=== PATIENT | female | born 1995 | race Caucasian/White ===

== ENCOUNTER → 2020-03-25 08:10 | Outpatient (BNVA) | payer OTHER, SELFPAY | PROVIDERS: Visit Provider Dietitian, Registered | DX: Z76.89 Persons encountering health services in other specified circumstances (principal) ==

== ENCOUNTER → 2022-12-16 09:14 | Outpatient (BNVA) | payer OTHER, SELFPAY | PROVIDERS: PCP Nurse Practitioner Family; Visit Provider Physician Assistant Surgical ==

== ENCOUNTER 2023-01-11 10:46 | Outpatient (AMB) | payer OTHER, SELFPAY ==
--- NOTE | 2023-01-11 10:56 | MHC.OFFVISWM ---
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 Her goal is to be healthy. She was in our SWL program before 2019 for a shor time, was not ready at that time. She reports first being concerned about her weight sicne childhood. . She has tried multiple methods of weight loss including diets without permanent results. 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 W- F 8-3pm and Thus/ Fri - 6am -4pm. 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 Coffee 1 cup with cream and sugar from DD Lunch: 12 pm - rice and beans with chicken or pork - from restaurant . water or juan daniel juice Dinner: 7pm -pasta with ground beef and spaghetti sauce. vegetables once per week. water After dinner: nothing Other snacks: 3pm bag of chips. water Liquids: Gingerale 3d/ week, juice few days per week. Alcohol intake: 2 d/mo- 2 glasses wine, tobacco: none, marijuana: 2 d times per month Exercise: none, wants to get membership Last mammogram: never Last pap smear: up to date control method: none presently, has PCP appt scheduled CATRACHITO:0 ESS:5 GERD:0: QOL:62 PFSH Surgical History History of delivery Family History Maternal Grandmother Hypertension Mother No problems noted. Father No problems noted. Daughter No problems noted. Daughter No problems noted. Son No problems noted. Social History Alcohol intake: current Alcohol intake frequency: a few times a month Patient Tobacco Use Status: Never used Tobacco Physical Exam Vital Signs: Last Vital Signs Temp 97.5 F 01/11/23 11:07 Pulse 88 01/11/23 11:07 BP 139/93 H 01/11/23 11:07 Pulse Ox 99 01/11/23 11:07 Oxygen Delivery Method Room Air 01/11/23 11:07 BMI result Body Mass Index 55.7 Const General: cooperative, no acute distress and well developed Nutritional Appearance: obese Orientation/consciousness: patient oriented x3 HEENT Head: Yes normal to inspection Neck Neck: Yes normal visual inspection Thyroid: Thyroid normal Resp Effort & Inspection: normal respiratory effort Auscultation: clear to auscultation bilaterally Cardio Rate: regular rate Rhythm: regular rhythm Heart sounds: S1 normal heart sound present, S2 normal heart sound present and no murmurs GI Inspection: No distended and Yes obesity Palpation (GI): Soft to palpation, nontender and no guarding Skin General skin exam: no rashes or lesions noted and other (warm and dry) Wounds: no wounds Hair: normal Neuro General: patient oriented x3 Extrem General: Yes no pedal edema and Yes no calf tenderness Psych Attitude: cooperative Thought process: Normal thought process present Thought content: Normal thought content present Insight: Good insight present (Psych) Judgement: Good judgement present (Psych) Assessment & Plan Assessment & Plan (1) Morbid obesity: Code(s): E66.01 - Morbid (severe) obesity due to excess calories Plan: This is a 27 yo woman with morbid obesity who will start SWL program to prepare for bariatric surgery. Blood work, h pylori , CXR, ECG, Abd ULS and UGI have been ordered. She is being scheduled for RD and BH initial consultations. She will start SWL classes and watch at 3 classes before her next appt with Gregoria. 1. Adequate sleep of 7-8 hours per night discussed 2. Healthy meal plan - stop skipping meals and stop all sweetened drinks and stop restaurant food for now All meals/MR's need to take 20 minutes to complete wants to switch to herbal tea with stevia 9am - 30 gram shake 11 pm - bar or yogurt 2 pm- shake 6 pm- dinner of 6 oz lean protein, 8 oz vegetable, 1 serving fruit Exercise - 4 -5 days per week LS 2 mile videos for now. Start with 3 days per week this week. The importance of avoiding and breast feeding for at least 18 months after bariatric surgery was discussed in the information session and was reinforced today. Needs contraceptive method. Pt will purchase body composition analyzer (recommended list given to patient) and weight herself weekly. Next appt with me in 3 weeks. Text me with any questions and weekly weights. Patient is morbidly obese and is not considered stable at this time.?I spent a total of 60 minutes reviewing/updating records, examining the patient and counseling the patient on weight management as detailed above. (2) Pre-op evaluation: Code(s): Z01.818 - Encounter for other preprocedural examination Coding Level of Care Code New Pt Level 5 (77199) Diagnoses Morbid obesity E66.01 Pre-op evaluation Z01.818
[2023-01-11 11:07] VITALS: BP 139/93; PULSE 88; TEMP 36.4; O2SAT 99; BMI 55.7
== END 2023-01-11 11:55 | disposition home or self-care (01) ==
PROVIDERS: PCP Nurse Practitioner Family; Visit Provider Physician Assistant
DX: E66.01 Morbid (severe) obesity due to excess calories (principal); Z68.43 Body mass index [BMI] 50.0-59.9, adult
CPT/HCPCS: 99205

== ENCOUNTER → 2023-01-11 10:46 | Outpatient (BNVA) | payer OTHER, SELFPAY | PROVIDERS: PCP Nurse Practitioner Family; Visit Provider Physician Assistant | DX: E66.01 Morbid (severe) obesity due to excess calories (principal); Z68.43 Body mass index [BMI] 50.0-59.9, adult | CPT/HCPCS: 99202; 99211 ==

== ENCOUNTER 2023-01-11 12:30 | Outpatient (REF) | payer OTHER, SELFPAY ==
[2023-01-14 14:35] LABS: H Pylori Breath Test Negative (Negative)
== END 2023-01-11 12:31 | disposition home or self-care (01) ==
LOC: HO.LNP 12:30
PROVIDERS: Visit Provider Physician Assistant
DX: Z01.818 Encounter for other preprocedural examination (principal); E66.01 Morbid (severe) obesity due to excess calories; Z71.3 Dietary counseling and surveillance; Z11.0 Encounter for screening for intestinal infectious diseases; Z68.43 Body mass index [BMI] 50.0-59.9, adult
CPT/HCPCS: 83013

== ENCOUNTER 2023-02-08 09:49 | Outpatient (AMB) | payer OTHER, SELFPAY ==
--- NOTE | 2023-02-08 09:51 | MHC.OFFVISWM ---
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 Starting weight was 366.2 lbs on . No weight loss yet. Just started plans and has made many changes so far. Now sleeping 7 hours per night. 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 Meal plan: started last week. 8am - [employer] - over 15 - 20 minutes 11 am - [employer] shake 3pm - bar - Pure protein 7pm - broccoli/carrots every day 12 forks, 6oz (12 forks) chicken breast and salmon Exercise - tried videos twice. Now has gym membership treadmill - 1-2 speed, incline - 0, 30 minutes, calories H pylori - done --negative. Nothing else done yet. [facility] Surgical History History of delivery Family History Maternal Grandmother Hypertension Mother No problems noted. Father No problems noted. Daughter No problems noted. Daughter No problems noted. Son No problems noted. Social History Alcohol intake: current Alcohol intake frequency: a few times a month Patient Tobacco Use Status: Never used Tobacco Physical Exam Vital Signs: Last Vital Signs Temp 97.2 F 02/08/23 09:55 Pulse 77 02/08/23 09:55 Resp 16 02/08/23 09:55 BP 136/66 02/08/23 09:55 Pulse Ox 98 02/08/23 09:55 Oxygen Delivery Method Room Air 02/08/23 09:55 BMI result Body Mass Index 56.2 Assessment & Plan Assessment & Plan (1) Morbid obesity: Code(s): E66.01 - Morbid (severe) obesity due to excess calories Plan: Will schedule all pre op appts today. She missed BH and RD was cancelled because she hadn't starte meal plan yet. No changes to meal plan - she is happy and not hungry. Exercise - gym - 3d/ week treadmill - speed 2.5, incline 0-5 (3 minutes ) for 350 calories. 2 d at home LS 2 mile videos. Next appt with me in 3 weeks. Patient is morbidly obese and is not considered stable at this time. I spent 30 minutes in total with patient reviewing/updating records, examining the patient and counseling the patient on weight management as detailed above. Orders: Orders Lipid Panel Today E66.01 - Morbid (severe) obesity due to excess calories, Z01.818 - Encounter for other preprocedural examination Vitamin B12 and Folate Today E66.01 - Morbid (severe) obesity due to excess calories, Z01.818 - Encounter for other preprocedural examination Vitamin A Today E66.01 - Morbid (severe) obesity due to excess calories, Z01.818 - Encounter for other preprocedural examination C Reactive Protein Today E66.01 - Morbid (severe) obesity due to excess calories, Z01.818 - Encounter for other preprocedural examination TSH reflex Free T4 Today E66.01 - Morbid (severe) obesity due to excess calories, Z01.818 - Encounter for other preprocedural examination Vitamin D 25-OH Total Today E66.01 - Morbid (severe) obesity due to excess calories, Z01.818 - Encounter for other preprocedural examination Hemoglobin A1c Today E66.01 - Morbid (severe) obesity due to excess calories, Z01.818 - Encounter for other preprocedural examination US abdomen comp w elastography Today E66.01 - Morbid (severe) obesity due to excess calories, Z01.818 - Encounter for other preprocedural examination FL upper GI w air Today E66.01 - Morbid (severe) obesity due to excess calories, Z01.818 - Encounter for other preprocedural examination Insulin Today E66.01 - Morbid (severe) obesity due to excess calories, Z01.818 - Encounter for other preprocedural examination IRON PROFILE Today E66.01 - Morbid (severe) obesity due to excess calories, Z01.818 - Encounter for other preprocedural examination Complete Blood Count Auto Diff Today E66.01 - Morbid (severe) obesity due to excess calories, Z01.818 - Encounter for other preprocedural examination Zinc Today E66.01 - Morbid (severe) obesity due to excess calories, Z01.818 - Encounter for other preprocedural examination Comprehensive Met. Panel Today E66.01 - Morbid (severe) obesity due to excess calories, Z01.818 - Encounter for other preprocedural examination Vitamin B1 Today E66.01 - Morbid (severe) obesity due to excess calories, Z01.818 - Encounter for other preprocedural examination Ferritin Today E66.01 - Morbid (severe) obesity due to excess calories, Z01.818 - Encounter for other preprocedural examination PTHI Today E66.01 - Morbid (severe) obesity due to excess calories, Z01.818 - Encounter for other preprocedural examination H Pylori Breath Test Today E66.01 - Morbid (severe) obesity due to excess calories, Z01.818 - Encounter for other preprocedural examination XR chest 2V Today E66.01 - Morbid (severe) obesity due to excess calories, Z01.818 - Encounter for other preprocedural examination ECG 12 lead EKG Today E66.01 - Morbid (severe) obesity due to excess calories, Z01.818 - Encounter for other preprocedural examination Referrals Behavioral Health Referral E66.01 - Morbid (severe) obesity due to excess calories, Z01.818 - Encounter for other preprocedural examination Nutrition/Dietitian Referral E66.01 - Morbid (severe) obesity due to excess calories, Z01.818 - Encounter for other preprocedural examination Coding Level of Care Code Est Pt Level 4 (30721) Diagnoses Morbid obesity E66.
[2023-02-08 09:55] VITALS: BP 136/66; PULSE 77; RESP 16; TEMP 36.2; O2SAT 98; BMI 56.2
== END 2023-02-08 10:33 | disposition home or self-care (01) ==
PROVIDERS: PCP Nurse Practitioner Family; Visit Provider Physician Assistant
DX: E66.01 Morbid (severe) obesity due to excess calories (principal); Z68.43 Body mass index [BMI] 50.0-59.9, adult
CPT/HCPCS: 99214

== ENCOUNTER 2023-02-08 09:49 | Outpatient (REF) | payer OTHER, SELFPAY ==
[2023-02-08 10:55] LABS: MANUAL DIFF FLAG NO
[2023-02-08 11:16] LABS: Basophils Percent Auto 0.6 % (0-2); Eosinophils Absolute Auto 0.1 X10*3/uL (0.0-0.4); Eosinophils Percent Auto 1.9 % (0-4); Hematocrit 38.4 % (37.0-47.0); Hemoglobin 12.6 g/dl (12.0-16.0); Imm Gran Abs Auto 0.04 X10*3/uL (0.00-0.03); Imm Gran Pct Auto 0.6 % (0.0-0.4); Lymphocytes Absolute Auto 2.8 X10*3/uL (1.2-4.9); Lymphocytes Percent Auto 41.8 % (20-40); Mean Corpuscular HGB Conc 32.8 g/dl (31.0-35.0); Mean Corpuscular Hemoglobin 27.8 pg (27.0-33.0); Mean Corpuscular Volume 84.6 fL (80.0-98.0); Mean Platelet Volume 8.8 fL (9.4-12.3); Monocytes Absolute Auto 0.5 X10*3/uL (0.1-1.2); Monocytes Percent Auto 7.6 % (2-11); Neutrophils Absolute Auto 3.2 x10*3/uL (2.0-8.3); Neutrophils Percent Auto 47.5 % (45-73); Platelet Count 352 X10*3/uL (160-400); Red Blood Count 4.54 X10*6/uL (4.20-5.50); Red Cell Distribution Width 13.4 % (11.0-16.0); White Blood Count 6.7 X10*3/uL (4.8-10.8)
[2023-02-08 11:18] LABS: Estimated Average Glucose 97 mg/dL
[2023-02-08 12:25] LABS: Folate 10.1 ng/mL (> or = 4.0); Vitamin B12 219 pg/mL (200-900)
[2023-02-08 12:40] LABS: Alanine Aminotransferase 10 U/L (0-31); Albumin Level 4.1 g/dL (3.5-5.0); Alkaline Phosphatase 72 U/L (39-117); Anion Gap 9 (12-20); Aspartate Amino Transferase 24 U/L (5-31); Bilirubin Total 0.3 mg/dL (0.0-1.0); Blood Urea Nitrogen 11 mg/dL (9-16); C Reactive Protein 1.08 mg/dL (< or = 0.50); Calcium 9.1 mg/dL (8.4-10.2); Carbon Dioxide 27 mmol/L (22-29); Chloride 108 mmol/L (96-108); Cholesterol 218 mg/dL (<200); Estimated Glomerular Filt Rate > 60; Ferritin 16 ng/mL (10-122); Glucose Random 98 mg/dL (60-115); HDL Cholesterol 54 mg/dL (>40); Insulin 15 uU/mL (2-29); Iron 37 mcg/dL (30-160); LDL Cholesterol Calculated 153 mg/dL (<100); Percent Iron Saturation 12 % (15-50); Potassium 4.2 mmol/L (3.3-5.1); Sodium 140 mmol/L (135-145); TSH reflex Free T4 0.46 uIU/mL (0.32-4.0); Total Iron Binding Capacity 318 mcg/dL (228-428); Total Protein 7.3 g/dL (6.5-8.0); Triglycerides 56 mg/dL (<150); Unsaturated Iron Binding 281 ug/dL; Vitamin D 25-OH Total 14.1 ng/mL (>30)
[2023-02-09 16:14] LABS: Calcium (PTHI) 8.8 mg/dL (8.6-10.2); PTHI 98 pg/mL (16-77)
[2023-02-12 01:29] LABS: Zinc 60 mcg/dL (60-130)
[2023-02-12 02:53] LABS: Vitamin A 33 mcg/dL (38-98)
[2023-02-14 12:02] LABS: Vitamin B1 11 nmol/L (8-30)
== END 2023-02-08 09:50 | disposition home or self-care (01) ==
LOC: HO.LAB 09:49
PROVIDERS: PCP Nurse Practitioner Family; Visit Provider Physician Assistant
DX: Z01.818 Encounter for other preprocedural examination (principal); E66.01 Morbid (severe) obesity due to excess calories; Z71.3 Dietary counseling and surveillance
CPT/HCPCS: 36415; 80053; 80061; 82306; 82607; 82728; 82746; 83036; 83525; 83540; 83970; 84425; 84443; 84590; 84630; 85025; 86140; 99212

== ENCOUNTER 2023-03-02 09:20 | Outpatient (AMB) | payer OTHER, SELFPAY ==
--- NOTE | 2023-03-02 09:08 | MHC.WMTHER ---
Intake Intake Visit Reasons: VIDEO Intake Allergies No Known Allergies Allergy (Verified 02/08/23 09:58) [facility] Surgical History History of delivery Family History Maternal Grandmother Hypertension Mother No problems noted. Father No problems noted. Daughter No problems noted. Daughter No problems noted. Son No problems noted. Social History Alcohol intake: current Alcohol intake frequency: a few times a month Patient Tobacco Use Status: Never used Tobacco Behavioral Health Assessment Weight Management Therapy Therapy Notes Details Pt is looking to have weight loss surgery to help improve her health and quality of life. She stated that she has been in pain and tired of being tired. Pt is not in therapy and has never been. No hx of drug or alcohol abuse. Pt denied any disordered eating treatment in the past. No legal issues. Presenting Concerns Referral Source provider Reason for referral weight loss surgery Precipitating Event obesity Living Situation Current Living Situation Rent At risk of losing current housing? No Satisfied with current living situation? Yes Comments Pt lives with her children 7, 4, and 8 month old baby and her boyfriend. he is the father of her youngest baby. Food/Weight/Diet Expectations of change weight loss and maintenance History/Relationship with food Pt stated that she was eating late at night because she stays up late. She would eat around 12 and then eat at night when her kids are in bed. This is when she would eat the most. Fast food everyday for lunch, shana chase 2 bottles a day, coffee with cream and sugar, chocolate. History/Relationship with weight Pt is currently at her heaviest. She reported always being overweight since childhood. History/Relationship with dieting BRANDY Parnell (10-15lbs loss). Binge Eating Do you frequently eat large amounts of food in short periods of time, not feeling physically hungry? No Do you feel out of control when you eat a large amount of food in a short period of time? No Do you eat large amounts of food rapidly and typically alone? Yes Night Eating Do you wake up at least once during the night to eat? No If you wake up in the night, do you find that it is necessary to eat something in order to fall back asleep? No Do you have little or no appetite in the morning and feel very hungry in the evening, often overeating between dinner and when you go to bed? Yes Social History Family history and relationship Pt lives with her children and boyfriend. She was born and raised in [place], [place] by her mother. She stated that her mother's side of the family is overweight and her grandmother had weight loss surgery. 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 Developmental history and status no issues known Social support mom, boyfriend Cultural/Ethnic information Legal Involvement and History Current or historical involvement with the legal system? 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 No Interested in further educational program? 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 Employment Employment Status [employer] and School Wants help to find employment? No Financial Situation Describe current financial situation Comfortable and Occasional struggle Financial assistance? None Service Service? No Mental Health and Addiction Treatment Current/Past substance abuse? No Current/Past addictive behavior concerns? No Medical and Physical Health Summary Physical exam in the last year? No Pain Screening Current pain? No Pain in the last few months? No Medications Is the patient compliant with medications? Yes Does the patient have [place] Guardian in place? Not applicable Does the patient use complimentary health approaches? No Trauma/Abuse History History of trauma? No Questionnaires PHQ-9 Over the last 2 weeks, how often have you been bothered by any of the following problems? 1. Little interest or pleasure in doing things: not at all 2. Feeling down, depressed, or hopeless: several days 3. Trouble falling or staying asleep, or sleeping too much: several days 4. Feeling tired or having little energy: several days 5. Poor appetite or overeating: several days 6. Feeling bad about yourself - or that you are a failure or have let yourself or your family down: several days 7. Trouble concentrating on things, such as reading the newspaper or watching television: several days 8. Moving or speaking so slowly that other people could have noticed. Or the opposite - being so fidgety or restless that you have been moving around a lot more than usual: not at all 9. Thoughts that you would be better off or of hurting yourself in some way: not at all Total score: 6 Source: Developed by Drs. Koby Becerril, Melisa Infante, Hardeep Sol and colleagues, with an educational wilder from [employer]. Binge Eating Scale Group 1 A. I don't feel self-conscious about my wt. or body size when I'm with others. B. I feel concerned about how I look to others, but it normally does not make me fell disappointed with myself C. I do get self-conscious about my appearance and wt. which makes me feel disappointed in myself. D. I feel very self-conscious about my wt. and frequently I feel intense shame and disgust for myself. I try to avoid social contacts because of my self-consciousness. Response Group 1: C Group 2 A. I don't have any difficulty eating slowly in the proper manner. B. Although I seem to gobble down foods, I don't end up feeling stuffed because of eating to much. C. At times, I tend to eat quickly and then, I feel uncomfortably full afterwards. D. I have the habit of bolting down my food, without really chewing it. When this happens I usually feel uncomfortably stuffed because I've eaten to much. Response Group 2: A Group 3 A. I feel capable to control my eating urges when I want to. B. I feel like I have failed to control my eating more than the average person. C. I feel utterly helpless when it comes to feeling in control of my eating urges. D. Because I feel so helpless about controlling my eating I have become very desperate about trying to get control. Response Group 3: A Group 4 A. I don't have the habit of eating when I'm bored. B. I sometimes eat when I'm bored, but often I'm able to get busy and get my mind off food. C. I have a regular habit of eating when I'm bored, but occasionally, I can use some other activity to get my mind off eating. D. I have a strong habit of eating when I'm bored. Nothing seems to help me breath the habit. Response Group 4: C Group 5 A. I'm usually physically hungry when I eat something. B. Occasionally, I eat something on impulse even though I really am not hungry. C. I have the regular habit of eating foods, that I might not really enjoy, to satisfy a hungry feeling even though physically, I don't need the food. D. Although I'm not physically hungry, I get a hungry feeling in my mouth that only seems to be satisfied when I eat a food, like sandwich, that fills my mouth. Sometimes, when I eat the food to satisfy my mouth hunger, I then spit the food out so I won't gain weight. Response Group 5: A Group 6 A. I don't feel any guilt or self-hate after I overeat. B. After I overeat, occasionally I feel guilt or self-hate. C. Almost all the time I experience strong guilt or self-hate after I overeat. Response Group 6: A Group 7 A. I don't lose total control of my eating when dieting even after periods when I overeat. B. Sometimes when I eat a forbidden food on a diet, I feel like I blew it and eat even more. C. Frequently, I have the habit of saying to myself, I've blown it now, why not go all the way, when I overeat on a diet. When that happens I eat more. D. I have a regular habit of starting a strict diets for myself but I break the diets by going on an eating binge. My life seems to be either a feast or famine. Response Group 7: A Group 8 A. I rarely eat so much food that I feel uncomfortably stuffed afterwards. B. Usually about once a month, I each such a quantity of food, I end up feeling very stuffed. C. I have regular periods during the month when I eat large amounts of food, either at mealtime or at snacks. D. I eat so much food that I regularly feel quite uncomfortable after eating and sometimes a bit nauseous. Response Group 8: A Group 9 A. My level of calorie intake does not go up very high or go down very low on a regular basis. B. Sometimes after I overeat, I will try to reduce my caloric intake to almost nothing to compensate for the excess calories I've eaten. C. I have a regular habit of overeating during the night. It seems that my routine is not to be hungry in the morning but overeat in the evening. D. In my adult years, I have had week-long periods where I practically starve myself. This follows periods when I overeat. It seems I live a life of either feast or famine. Response Group 9: C Group 10 A. I usually am able to stop eating when I want to. I know when enough is enough. B. Every so often, I experience a compulsion to eat which I can't seem to control. C. Frequently, I experience strong urges to eat which I seem unable to control, but at other times I can control my eating urges. D. I feel incapable of controlling urges to eat. I have a fear of not being able to stop eating voluntarily. Response Group 10: A Group 11 A. I don't have any problem stopping eating when I feel full. B. I usually can stop eating when I feel full but occasionally overeat leaving me feeling uncomfortably stuffed. C. I have a problem stopping eating once I start and usually I feel uncomfortably stuffed after I eat a meal. D. Because I have a problem not being able to stop eating when I want, I sometimes have to induce vomiting to relieve my stuffed feeling. Response Group 11: A Group 12 A. I seem to eat just as much when I'm with others, Family social gatherings as when I'm by myself. B. Sometimes, when I'm with other persons, I don't eat as much as I want to eat because I'm self-conscious about my eating. C. Frequently, I eat only a small amount of food when others are present, because I'm very embarrassed about my eating. D. I feel so ashamed about overeating that I pick times to overeat when I know no one will see me. I feel like a closet eater. Response Group 12: A Group 13 A. I eat three meals a day with only an occasional between meal snack. B. I eat 3 meals a day, but I also normally snack between meals. C. When I am snacking heavily, I get in the habit of skipping regular meals. D. There are regular periods when I seem to be continually eating, with no planned meals. Response Group 13: C Group 14 A. I don't think much about trying to control unwanted eating urges. B. At least some of the time, I feel my thoughts are pre-occupied with trying to control my eating urges. C. I feel that frequently I spend much time thinking about how much I ate or about trying not to eat anymore. D. It seems to me that most of my waking hours are pre-occupied by thoughts about eating or not eating. I feel like I'm constantly struggling not to eat. Response Group 14: A Group 15 A. I don't think about food a great deal. B. I have strong craving for food but they last only for brief periods of time. C. I have days when I can't seem to think about anything else but food. D. Most of my days seem to be pre-occupied with thoughts about food. I feel like I live to eat. Response Group 15: A Group 16 A. I usually know whether or not I'm physically hungry. I take the right portion of food to satisfy me. B. Occasionally, I feel uncertain about knowing whether or not I'm physically hungry. A these times it's hard to know how much food I should take to satisfy me. C. Even though I might know how many calories I should eat, I don't have any idea what is a normal amount of food for me. Response Group 16: A Binge Eating Score: 8 Score less than 17 Minimal Risk Score between 18-26 Moderate Risk Score between 27-46 High Risk Assessment & Plan Assessment & Plan (1) Adjustment disorder, unspecified: Code(s): F43.20 - Adjustment disorder, unspecified (2) Morbid obesity: Code(s): E66.01 - Morbid (severe) obesity due to excess calories Plan Pt presents with no major mental health issues at this time nor reports any. It was noted that her boyfriend may have been present for this evaluation via telehealth. 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 She is cleared for surgery when ready. Telehealth Telehealth Location of provider rendering services: other Location of patient: address on file Patient Identification confirmed using: Name, : Yes Telehealth method: video Patient verbally consented to treatment: Yes Patient verbally consented to billing insurance company: Yes Patient informed of any privacy concerns related to visit: Yes Minutes spent on Phone/Video with Pt.: 40 Coding Level of Care Code Tele Psy Diag Eval (46215) Diagnoses Adjustment disorder, unspecified F43.20 Morbid obesity E66.01 Time Spent (min) 45
== END 2023-03-02 09:30 | disposition home or self-care (01) ==
LOC: HO.HBST 09:20
PROVIDERS: PCP Nurse Practitioner Family; Visit Provider Counselor Mental Health
DX: F43.20 Adjustment disorder, unspecified (principal); E66.01 Morbid (severe) obesity due to excess calories
CPT/HCPCS: 90791

== ENCOUNTER → 2023-03-02 09:20 | Outpatient (BNVA) | payer OTHER, SELFPAY | PROVIDERS: PCP Nurse Practitioner Family; Visit Provider Counselor Mental Health ==

== ENCOUNTER 2023-03-04 13:11 | Outpatient (AMB) | payer OTHER, SELFPAY ==
--- NOTE | 2023-03-04 13:20 | A.OFFPC_ITS ---
Vital Signs 03/04/23 13:34 Height 5 ft 8 in Weight 369 lb BMI 56.1 BP 138/80 Blood Pressure Location Lt brachial Position Sitting Pulse 101 H Pulse Source Pulse Oximeter Temp Source Skin Pulse Oximetry (%) 98 Oxygen Delivery Method Room Air Intake Visit Reasons: NPV-REQUESTING PHY Traffic Supervisor Required: No Allergies No Known Allergies Allergy (Verified 03/04/23 13:47) Medication List - Last Reconciled 03/04/23 by LUCILLE Cowan cholecalciferol (vitamin D3) 50 mcg PO DAILY cyanocobalamin (vitamin B-12) 250 mcg (1/2 x 500 mcg) PO DAILY vitamin A palmitate 6,000 mcg (2 x 3,000 mcg (10,000 unit)) PO DAILY Tobacco use date assessed: 03/04/23 Dental Screening Dental Screen Date: 03/04/23 Did you have a dental visit in the last 12 months?: Yes Did you have a dental problem in the last 6 months where you did not have access to dental care?: No Was dental information given to patient?: Patient has dentist HPI HPI Comments History of Present Illness Details 27-year-old female new patient presents today to establish care past medical history significant for obesity. Patient currently following with weight management clinic. Complete blood work done in January reviewed with patient. Patient denies chest pain, palpitations, shortness of breath and syncope. Patient does report ongoing bilateral knee pain for years. Patient currently taking [id number] Tylenol and ibuprofen for this, requesting x- rays. Eye exam: recommended every couple years. Pap smear: Referral entered to OBGYN. Flu shot given in office today. Proof of Physical letter given to patient. [facility] Medical History (Updated 03/04/23 @ 13:56 by LUCILEL Cowan) Adjustment disorder, unspecified Surgical History History of delivery Family History Maternal Grandmother Hypertension Mother No problems noted. Father No problems noted. Daughter No problems noted. Daughter No problems noted. Son No problems noted. Social History (Updated 03/04/23 @ 13:48 by LUCILLE Cowan) Housing: Apartment Alcohol intake: current Alcohol intake frequency: a few times a month Patient Tobacco Use Status: Never used Tobacco service: No Current occupational status: employed Cognitive needs: No Hearing needs: No Vision needs: No Questionnaire PHQ-9 Over the last 2 weeks, how often have you been bothered by any of the following problems? 1. Little interest or pleasure in doing things: not at all 2. Feeling down, depressed, or hopeless: not at all 3. Trouble falling or staying asleep, or sleeping too much: not at all 4. Feeling tired or having little energy: not at all 5. Poor appetite or overeating: not at all 6. Feeling bad about yourself - or that you are a failure or have let yourself or your family down: not at all 7. Trouble concentrating on things, such as reading the newspaper or watching television: not at all 8. Moving or speaking so slowly that other people could have noticed. Or the opposite - being so fidgety or restless that you have been moving around a lot more than usual: not at all 9. Thoughts that you would be better off or of hurting yourself in some way: not at all Total score: 0 Depression Screening Interpretation: Negative Depression Screening Done: Yes 17873 - PHQ-9 Billing: Yes Source: Developed by Drs. Koby Becerril, Melisa Infante, Hardeep Sol and colleagues, with an educational wilder from [employer]. Thrive Questionnaire Date Thrive assessed: 03/04/23 I am a: Patient What is your living situation today?: I have a steady place to live Within the past 12 months, did the food you bought not last and you didn't have the money to get more?: Never true Within the past 12 months, did you worry whether your food would run out before you got money to buy more?: Never true Do you have trouble paying for medicines?: No Do you have trouble getting transportation to medical appointments?: No Do you have trouble paying your heating and electricity bill?: No Do you have trouble taking care of your child, family member or friend?: No Do you have trouble with day-to-day activities such as bathing, preparing meals, shopping, managing finances, etc.?: No Are you currently unemployed and looking for a job?: No Are you interested in more education?: No AUDIT C Alcohol Use Questionnaire (AUDIT-C) 1. How often do you have a drink containing alcohol?: Monthly or less 2. How many drinks containing alcohol do you have on a typical day when you are drinking?: 1 or 2 3. How often do you have six or more drinks on one occasion?: Never Total Score: 1 WERNER-7 AMB Questionnaire WERNER-7 Date WERNER - 7 assessed: 03/04/23 Feeling nervous, anxious, or on edge: 0 = Not at all Not being able to stop or control worryin = Not at all Worrying too much about different things: 0 = Not at all Trouble relaxin = Not at all Being so restless that it is hard to sit still: 0 = Not at all Becoming easily annoyed or irritable: 0 = Not at all Feeling afraid as if something awful might happen: 0 = Not at all Total WERNER-7 score (0-4 normal; 5-9 mild; 10-14 moderate; 15-21 severe): 0 Source: Developed by Drs. Koby Becerril, Melisa Infante, Hardeep Sol and colleagues, with an educational iwlder from [employer]. WERNER-7 Assessment Billing WERNER-7 Assessment Tool: WERNER-7 Assessment 06174 Review of Systems Const Denies chills, Denies fatigue, Denies fever(s) and Denies poor appetite Eyes Denies no additional complaints ENT Reports Normal hearing present Card Denies chest pain, Denies syncope, Denies rapid heart rate and Denies dyspnea Resp Denies cough and Denies dyspnea GI Denies change in stool character, Denies constipation, Denies diarrhea, Denies nausea and Denies vomiting Denies urinary frequency, Denies dysuria and Denies urinary urgency Neuro Reports Normal hearing present, Denies confusion and Denies syncope Psych Denies confusion Endo Denies fatigue Physical exam (Primary Care) Vital Signs: Last Vital Signs Pulse 101 H 03/04/23 13:34 BP 138/80 03/04/23 13:34 Pulse Ox 98 03/04/23 13:34 Oxygen Delivery Method Room Air 03/04/23 13:34 BMI result Body Mass Index 56.1 Tobacco/Smoking Status: Tobacco use Status Tobacco use date assessed 03/04/23 03/04/23 13:36 Patient Tobacco Use Status Never used Tobacco 03/04/23 13:48 PHQ-9: PHQ-9 Score PHQ-9: Total score 0 03/04/23 13:50 Depression Screening Interpretation: Negative Thrive Assessment: Date of Thrive Assessment Date Thrive assessed 03/04/23 03/04/23 13:36 Const General: No confusion Orientation/consciousness: No confusion HENMT Head: Yes normocephalic and Yes atraumatic Ears: external ears normal and TM's normal bilaterally General nose exam: Normal external nose present and Normal nasal mucous membranes and turbinates present Face and sinus: Yes normal facial exam and Yes sinuses nontender Mouth: moist mucous membranes Throat: Yes tonsils normal Eyes Conjunctivae: conjunctivae normal Sclerae: sclerae normal Pupils: Equal, round and reactive pupils present and Pupils normal by confrontation EOM: EOMs intact bilaterally Direct Ophthalmoscopy: normal light reflex Neck Neck: Yes no lymphadenopathy and Yes supple Thyroid: Thyroid normal Chest Chest palpation & inspection: normal inspection of the chest Resp Effort & Inspection: normal respiratory effort Auscultation: clear to auscultation bilaterally, no crackles, no rhonchi and no wheezes Cardio Rate: regular rate Rhythm: regular rhythm Peripheral pulses: radial pulses present and dorsalis pedis present GI Inspection: Yes normal to inspection Palpation (GI): Soft to palpation, nontender and No hepatosplenomegaly present Auscultation: normoactive bowel sounds Skin General skin exam: no rashes or lesions noted Neuro General: No confusion Cranial nerves: Yes Equal, round and reactive pupils present and Yes Normal hearing present Cognition (Neuro): normal cognition Gait exam (Neuro): Normal gait present Motor exam (neuro): 5/5 motor strength present throughout Deep tendon reflexes (DTR's): Right brachioradialis reflex intensity grade: 2+, Left brachioradialis reflex intensity grade: 2+, Right patellar reflex intensity grade: 2+ and Left patellar reflex intensity grade: 2+ Extrem General: No edema Office Procedures Flu Questionnaire Does the patient have a severe egg allergy?: No Does the patient have severe life threatening allergies?: No Does the patient have a fever or illness today?: No Has the patient ever had Guillain-[place] Syndrome?: No Has the patient ever had any past reaction to a flu shot?: No Immunizations flu vacc [id number] 6mos up(PF) 60 mcg(15 mcgx4)/0.5 mL IM syringe Performing Provider: LUCILLE Cowan [facility] Administered by: RADHA Medrano on 03/04/23 13:47 Dose Route Admin Location Dispensed Lot Number Expiration Date NDC Surveillance Dual Rate Officer 0.5 mL IM Left Deltoid 0.5 mL [id number] 11/21/23 59710-322-34 [employer] VIS Given Date VIS Provided VIS Publication Date 03/04/23 Single Vaccine 20 Eligibility Eligibility Date Funding Source Not VF Eligible 03/04/23 Private Assessment and Plan Assessment & Plan (1) Bilateral knee pain: Code(s): M25.561 - Pain in right knee; M25.562 - Pain in left knee Plan: Bilateral knee x-ray ordered. Can take gtyp-ywk-vlesear Tylenol and ibuprofen as needed for pain. (2) Morbid obesity: Code(s): E66.01 - Morbid (severe) obesity due to excess calories Plan: Continue to follow with weight management. Plan Follow-up in 1 year sooner if needed. Orders: Orders Influenza [id number] Immunization 03/04/23 Z23 - Encounter for immunization XR knee RT 2V 03/04/23 M25.561 - Pain in right knee, M25.562 - Pain in left knee XR knee LT 2V 03/04/23 M25.561 - Pain in right knee, M25.562 - Pain in left knee Referrals [employer]SE[employer] M[employer]ER Referral Z12.4 - Encounter for screening for malignant neoplasm of cervix Coding Level of Care Code New Pt Prev Care 18-39yr([id number] Diagnoses Bilateral knee pain M25.561; M25.562 Morbid obesity E66.01 Additional Codes WERNER-7 Assessment Billing - WERNER-7 Assessment Tool: WERNER-7 Assessment [id number] ([id number])
[2023-03-04 13:34] VITALS: BP 138/80; PULSE 101; O2SAT 98; BMI 56.1
== END 2023-03-04 13:58 | disposition home or self-care (01) ==
PROVIDERS: PCP Nurse Practitioner Family; Visit Provider Nurse Practitioner Family
DX: Z23 Encounter for immunization (principal)
CPT/HCPCS: 90471; 90686; 99385

== ENCOUNTER 2023-08-12 09:28 | Outpatient (AMB) | payer OTHER, SELFPAY ==
[2023-08-12 09:31] VITALS: BP 136/78; BMI 54.7
--- NOTE | 2023-08-12 09:31 | MHC.OFFVIS ---
Intake Vital Signs 08/12/23 09:31 Height 5 ft 8 in Weight 360 lb BMI 54.7 BP 136/78 Blood Pressure Location Rt brachial Position Sitting Intake Visit Reasons: New patient Annual Intake Note: Pt presents to the office today for a new patient annual visit. Pt states she is interested in control due to her having irregular periods. 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 She moved here to live with her mother so she her mother could help her with her 3 kids she had 3 kids by . She is interested in control she is currently using condoms. She was in the weight management program but she could not keep up with it because of the demands of school and commuting to [place] for school so she was dropped because of missed appointments and rescheduling. She says she had did not have high blood pressure or diabetes in her pregnancies the 3 C sections were 1 because the baby's cord was around the neck and 2nd the heart rate dropped when she got the epidural and the 3rd was a repeat. She was on progestin only control pills before because she was nursing and she would be interested in going back on them. She has always had irregular periods all her life she has always been overweight. [facility] Medical History Adjustment disorder, unspecified Surgical History History of delivery Family History Maternal Grandmother Hypertension Mother No problems noted. Father No problems noted. Daughter No problems noted. Daughter No problems noted. Son No problems noted. Social History Housing: Apartment Alcohol intake: current Alcohol intake frequency: a few times a month Patient Tobacco Use Status: Never used Tobacco service: No Current occupational status: employed Cognitive needs: No Hearing needs: No Vision needs: No Female Reproductive History Menstrual Age of Menarche: 13 Duration of menses: 6-7 days Date of last menstrual period: 07/16/23 control method: none Total pregnancies: 3 Full term: 3 Number of Living Children: 3 History of abnormal pap smear: No History of STI: No Physical Exam Vital Signs: Last Vital Signs BP 136/78 08/12/23 09:31 BMI result Body Mass Index 54.7 Const General: healthy appearing, comfortable, no acute distress, well developed and alert Nutritional Appearance: average body habitus and obese Orientation/consciousness: patient oriented x3 Limitations: no limitations HEENT Head: Yes normocephalic Neck Neck: Yes normal visual inspection Chest Chest palpation & inspection: normal inspection of the chest Breast/axilla inspection: normal inspection of the breasts and normal inspection of the axillae Breast/axilla palpation: normal palpation of the breasts and normal palpation of the axillae Resp Effort & Inspection: normal respiratory effort GI Inspection: Yes normal to inspection, No Abdominal wall edema and No distended Palpation (GI): Soft to palpation and nontender Other: External exam within normal limits vagina pink . Cervix multiparous in appearance discharge appears within normal limits uterus midposition nontender good tone with Kegel no organomegaly. General: Yes bladder normal to palpation External Female Exam: normal external appearance and normal appearance of the urethra Speculum Exam - Vagina: normal appearance of the vagina, normal palpation and normal vaginal discharge Speculum Exam - Cervix: normal appearance of the cervix, normal palpation and nontender Bimanual exam- vagina & uterus: normal bimanual exam, normal palpation, uterine size normal, bladder normal to palpation, consistency normal, normal palpation, uterine mobility normal, uterine shape normal, No Cervical tenderness present, non-tender and no cervical motion tenderness Bimanual Exam- Adnexa, other: normal adnexae, no masses, normal and No adnexal tenderness Neuro General: patient oriented x3 Assessment & Plan Assessment & Plan (1) Morbid obesity: Code(s): E66.01 - Morbid (severe) obesity due to excess calories (2) Well woman exam with routine gynecological exam: Code(s): Z01.419 - Encounter for gynecological examination (general) (routine) without abnormal findings (3) Cervical cancer screening: Code(s): Z12.4 - Encounter for screening for malignant neoplasm of cervix (4) Encounter for screening examination for sexually transmitted disease: Code(s): Z11.3 - Encounter for screening for infections with a predominantly sexual mode of transmission (5) History of irregular menstrual cycles: Code(s): Z87.42 - Personal history of other diseases of the female genital tract (6) control counseling: Code(s): Z30.09 - Encounter for other general counseling and advice on contraception Plan -----Discussed in this visit the following: healthy balanced diet, regular and consistent exercise, getting recommended health screens, doing the best she can for her particular health concerns, kegel exercises, pap smear screening and followup recommendations, mammography screening and SBE, normal changes in cycles in her life stage--- .-I reviewed with the patient, all of the currently common used methods of control that are available. We reviewed how they work in the body, how they are taken, common side effects, uncommon side effects, precautions, and contraindications. -Discussed also factors that influence their effectiveness and use, and womens satisfaction with the method. -Discussed how each are used, and drawbacks of each method as well. -Methods covered included: condoms, control pills, control patches, control rings, Depo-Provera, Nexplanon, Mirena . In her case because of having the somewhat sedentary life at the moment with studying with school and her obesity she might be at slightly increased risk of thromboembolic events so I would not recommend combination contraceptives at this time and she understood that she has been on the progestin only pills before and would like to restart them I also encouraged her to consider strongly the Mirena IU S. 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 And we will see her in about 3 months to check on her blood pressure and see how she is doing. I encouraged her also to really continue with the knowledge that she is gained from the visit she did have with the weight management program and try to do it on her own as much as possible and not to lose momentum. She will not have a chance to take a break between school and work because she has the support her family but I encouraged her to really not lose site of her own health as a goal so she can be there for her kids. Orders: Orders CT NG by PCR Today Z11.3 - Encounter for screening for infections with a predominantly sexual mode of transmission Bacterial Vaginosis Panel Today Z11.3 - Encounter for screening for infections with a predominantly sexual mode of transmission Pap Smear Today Z01.419 - Encounter for gynecological examination (general) (routine) without abnormal findings Medications: New norethindrone (contraceptive) start w beginning of next menses 0.35 mg PO DAILY 84 tabs 3RF Coding Level of Care Code New Pt Prev Care 18-39yr([id number] Diagnoses Morbid obesity E66.01 Well woman exam with routine gynecological exam Z01.419 Cervical cancer screening Z12.4 Encounter for screening examination for sexually transmitted disease Z11.3 History of irregular menstrual cycles Z87.42 control counseling Z30.09
== END 2023-08-12 10:38 | disposition home or self-care (01) ==
LOC: HO.HWSM 09:28
PROVIDERS: PCP Nurse Practitioner Family; Visit Provider Advanced Practice Midwife
DX: Z01.419 Encounter for gynecological examination (general) (routine) without abnormal findings (principal); Z30.09 Encounter for other general counseling and advice on contraception; E66.01 Morbid (severe) obesity due to excess calories; Z87.42 Personal history of other diseases of the female genital tract
CPT/HCPCS: 99385

== ENCOUNTER 2023-08-12 09:28 | Outpatient (REF) | payer OTHER, SELFPAY ==
[2023-08-13 12:54] LABS: BV Int Neg Control Negative (Negative); BV Int Pos Control Positive (Positive)
== END 2023-08-12 09:29 | disposition home or self-care (01) ==
LOC: HO.LNP 09:28
PROVIDERS: PCP Nurse Practitioner Family; Visit Provider Advanced Practice Midwife
DX: Z01.419 Encounter for gynecological examination (general) (routine) without abnormal findings (principal); E66.01 Morbid (severe) obesity due to excess calories; Z68.43 Body mass index [BMI] 50.0-59.9, adult; Z11.3 Encounter for screening for infections with a predominantly sexual mode of transmission; Z87.42 Personal history of other diseases of the female genital tract
CPT/HCPCS: 87480; 87510; 87660; 88142; 99385

== ENCOUNTER 2023-08-12 10:56 | Outpatient (REF) | payer OTHER, SELFPAY ==
[2023-08-12 18:32] LABS: CT PCR NOT DETECTED (Not Detect.); NG PCR NOT DETECTED (Not Detect.)
[2023-08-15 05:33] LABS: TS Negative Control Passed; TS Panel A 0; TS Panel B 0; TS Positive Control Passed; TSpotTB Negative (Negative)
== END 2023-08-12 10:57 | disposition home or self-care (01) ==
LOC: HO.LAB 10:56
PROVIDERS: Advanced Practice Midwife; PCP Nurse Practitioner Family; Visit Provider Nurse Practitioner Family
DX: Z11.1 Encounter for screening for respiratory tuberculosis (principal); Z11.3 Encounter for screening for infections with a predominantly sexual mode of transmission
CPT/HCPCS: 0353U; 36415; 86481

== ENCOUNTER 2023-09-14 10:38 | Outpatient (REF) | payer OTHER, SELFPAY ==
--- NOTE | ~2023-09-14 | XR_ITS ---
EXAMINATION: XR KNEE, RIGHT CLINICAL INFORMATION: Pain in right knee No injury COMPARISON: None available. TECHNIQUE: AP and lateral standing of the right knee. FINDINGS: No fracture. Trace joint effusion. Alignment is anatomic. Minimal narrowing of the medial joint compartment with marginal osteophyte formation. There is slight increased density suggestive of edema anterior to the infrapatellar tendon. XR/XR knee RT 2V IMPRESSION: 1. Minimal osteoarthritis. 2. Slight increased density suggestive of edema anterior to the infrapatellar tendon.
--- NOTE | ~2023-09-14 | XR_ITS ---
EXAMINATION: XR KNEE, LEFT CLINICAL INFORMATION: Pain in knees COMPARISON: Same-day right knee TECHNIQUE: Standing AP and lateral views of the left knee. FINDINGS: No fracture. Small joint effusion. Alignment is anatomic. Minimal narrowing of the medial joint compartment with marginal osteophyte formation. There is minimal increased density suggestive of edema anterior to the infrapatellar tendon. XR/XR knee LT 2V IMPRESSION: 1. Minimal osteoarthritis of the medial joint compartment. 2. Minimal increased density suggestive of edema anterior to the infrapatellar tendon.
== END 2023-09-14 10:39 | disposition home or self-care (01) ==
LOC: HO.XRAY 10:38
PROVIDERS: Visit Provider Nurse Practitioner Family
DX: M25.561 Pain in right knee (principal); M25.562 Pain in left knee
CPT/HCPCS: 73560

== ENCOUNTER 2024-03-06 13:48 | Outpatient (AMB) | payer OTHER, SELFPAY ==
[2024-03-06 14:02] VITALS: BP 118/84; PULSE 68; O2SAT 97; BMI 52.5
--- NOTE | 2024-03-06 14:02 | MHC.PC.OV ---
Vital Signs 03/06/24 14:02 Height 5 ft 8 in Weight 345 lb 4 oz BMI 52.5 BP 118/84 Blood Pressure Location Lt brachial Position Sitting Pulse 68 Pulse Source Pulse Oximeter Pulse Oximetry (%) 97 Oxygen Delivery Method Room Air Intake Visit Reasons: PE- NEEDS PHQ9/REGGIE Biochemistry Specialist Required: No Accompanied by: Self / Same As Patient Allergies No Known Allergies Allergy (Verified 03/06/24 14:31) Medication List - Last Reconciled 03/06/24 by Zechariah Azevedo MD cholecalciferol (vitamin D3) 50 mcg PO DAILY cyanocobalamin (vitamin B-12) 250 mcg (1/2 x 500 mcg) PO DAILY norethindrone (contraceptive) 0.35 mg PO DAILY vitamin A palmitate 6,000 mcg (2 x 3,000 mcg (10,000 unit)) PO DAILY Tobacco use date assessed: 03/06/24 Dental Screening Dental Screen Date: 03/06/24 Did you have a dental visit in the last 12 months?: Yes Did you have a dental problem in the last 6 months where you did not have access to dental care?: No Was dental information given to patient?: Patient has dentist HPI PE- NEEDS PHQ9/REGGIE HPI Details Patient comes in today for her annual physical examination - is transferring from [facility], who is no longer with the practice Patient states that she currently feels okay She denies any headaches or dizziness Denies any chest pains, no SOB No nausea/vomiting, no abdominal pain No change in bowel habits noted She denies any acute urinary symptoms States that she just had a sleeve gastrectomy done last month on 02/01/2024 with [facility] She also had some rectal bleeding recently and went to the ER for evaluation - was advised that she had a bleeding hemorrhoid then States that she also needs a PPD placed today for school purposes She would also like to get her flu shot today [facility] Medical History (Updated 03/06/24 @ 15:18 by Zechariah Azevedo MD) Morbid obesity with BMI of 50.0-59.9, adult Vitamin B12 deficiency Elevated parathyroid hormone Vitamin D deficiency Pure hypercholesterolemia Adjustment disorder, unspecified Surgical History Status post sleeve gastrectomy History of delivery Family History Maternal Grandmother Hypertension Mother No problems noted. Father No problems noted. Daughter No problems noted. Daughter No problems noted. Son No problems noted. Social History Housing: Apartment Alcohol intake: current Alcohol intake frequency: a few times a month Patient Tobacco Use Status: Never used Tobacco service: No Current occupational status: employed Cognitive needs: No Hearing needs: No Vision needs: No Female Reproductive History Menstrual Age of Menarche: 13 Questionnaire PHQ-9 Over the last 2 weeks, how often have you been bothered by any of the following problems? 1. Little interest or pleasure in doing things: not at all 2. Feeling down, depressed, or hopeless: not at all 3. Trouble falling or staying asleep, or sleeping too much: not at all 4. Feeling tired or having little energy: not at all 5. Poor appetite or overeating: not at all 6. Feeling bad about yourself - or that you are a failure or have let yourself or your family down: not at all 7. Trouble concentrating on things, such as reading the newspaper or watching television: not at all 8. Moving or speaking so slowly that other people could have noticed. Or the opposite - being so fidgety or restless that you have been moving around a lot more than usual: not at all 9. Thoughts that you would be better off or of hurting yourself in some way: not at all Total score: 0 Depression Screening Interpretation: Negative Depression Screening Done: Yes 12576 - PHQ-9 Billing: Yes Source: Developed by Drs. Koby Becerril, Melisa Infante, Hardeep Sol and colleagues, with an educational wilder from [employer]. Thrive Questionnaire Date Thrive assessed: 03/06/24 I am a: Patient What is your living situation today?: I have a steady place to live Within the past 12 months, did the food you bought not last and you didn't have the money to get more?: Never true Within the past 12 months, did you worry whether your food would run out before you got money to buy more?: Never true Do you have trouble paying for medicines?: No Do you have trouble getting transportation to medical appointments?: No Do you have trouble paying your heating and electricity bill?: No Do you have trouble taking care of your child, family member or friend?: No Do you have trouble with day-to-day activities such as bathing, preparing meals, shopping, managing finances, etc.?: No Are you currently unemployed and looking for a job?: No Are you interested in more education?: Yes Please select the resources that you would like help with: None Currently or been in a relationship where the following occur: No concerns reported THRIVE Score: 0 AUDIT C Alcohol Use Questionnaire (AUDIT-C) 1. How often do you have a drink containing alcohol?: Never 3. How often do you have six or more drinks on one occasion?: Never Total Score: 0 Score Reviewed/Action Taken: Yes WERNER-7 AMB Questionnaire WERNER-7 Date WERNER - 7 assessed: 03/06/24 Feeling nervous, anxious, or on edge: 0 = Not at all Not being able to stop or control worryin = Not at all Worrying too much about different things: 0 = Not at all Trouble relaxin = Not at all Being so restless that it is hard to sit still: 0 = Not at all Becoming easily annoyed or irritable: 0 = Not at all Feeling afraid as if something awful might happen: 0 = Not at all Total WERNER-7 score (0-4 normal; 5-9 mild; 10-14 moderate; 15-21 severe): 0 Source: Developed by Drs. Koby Becerril, Melisa Infante, Hardeep Sol and colleagues, with an educational wilder from [employer]. WERNER-7 Assessment Billing WERNER-7 Assessment Tool: WERNER-7 Assessment 51641 Review of Systems Const Denies chills, Denies fatigue, Denies fever(s), Denies headache(s) and Denies malaise Eyes Denies blurry vision, Denies change in vision, Denies irritation and Denies itchy eyes ENT Denies dysphagia, Denies dizziness, Denies otalgia, Denies headache(s), Denies nasal congestion, Denies neck pain, Denies odynophagia, Denies sinus pain and Denies sore throat Card Denies chest pain, Denies rapid heart rate, Denies irregular heart rhythm, Denies palpitations and Denies dyspnea Resp Denies chest congestion, Denies cough, Denies dyspnea and Denies wheezing GI Denies abdominal pain, Denies bloating, Denies constipation, Denies dysphagia, Denies heartburn, Denies diarrhea, Denies nausea, Denies odynophagia and Denies vomiting Denies hematuria, Denies urinary frequency, Denies dysuria, Denies urinary incontinence and Denies urinary urgency Musc Denies back pain, Denies arthralgias, Denies joint swelling, Denies muscle weakness and Denies neck pain Skin/Breast Denies breast pain, Denies breast mass, Denies change in pigmentation, Denies lesions, Denies rash and Denies unusual bruising Neuro Denies dizziness, Denies headache(s) and Denies paresthesias Psych Denies anxiety and Denies depression Endo Denies fatigue and Denies palpitations Amandeep/Lymph Denies easy bruising Aller/Immun Denies itchy eyes and Denies wheezing Physical exam (Primary Care) Vital Signs: Last Vital Signs Pulse 68 03/06/24 14:02 BP 118/84 03/06/24 14:02 Pulse Ox 97 03/06/24 14:02 Oxygen Delivery Method Room Air 03/06/24 14:02 BMI result Body Mass Index 52.5 Tobacco/Smoking Status: Tobacco use Status Tobacco use date assessed 03/06/24 03/06/24 14:04 Patient Tobacco Use Status Never used Tobacco 03/06/24 14:04 PHQ-9: PHQ-9 Score PHQ-9: Total score 0 03/06/24 15:05 Depression Screening Interpretation: Negative Thrive Assessment: Date of Thrive Assessment Date Thrive assessed 03/06/24 03/06/24 14:04 Currently or been in a relationship where the following occur: No concerns reported Const General: no acute distress, alert and awake Orientation/consciousness: patient oriented x3 HENMT Head: Yes normocephalic and Yes atraumatic Ears: external ears normal, TM's normal bilaterally and EAC's normal General nose exam: No nasal discharge present Face and sinus: Yes normal facial exam and Yes sinuses nontender Teeth and gingiva: dentition normal Throat: Yes posterior oropharynx normal and Yes tonsils normal (no TP congestion) Eyes Eyelids: Yes eyelids normal Conjunctivae: conjunctivae normal Pupils: Equal, round and reactive pupils present EOM: EOMs intact bilaterally Neck Neck: Yes no lymphadenopathy and Yes supple Thyroid: Thyroid normal Resp Auscultation: clear to auscultation bilaterally, no rales and no wheezes Cardio Rate: regular rate Rhythm: regular rhythm Heart sounds: no murmurs GI Palpation (GI): Soft to palpation, nontender and No hepatosplenomegaly present Auscultation: normal bowel sounds General: Yes no CVA tenderness Back/Spine/Pelvis Back: no CVA tenderness Thoracic/Lumbar Spine: thoracic and lumbar spine normal to inspection Skin Lesions: no lesions Rashes: no rashes Neuro General: patient oriented x3, moves all extremities, no focal motor deficits and CN's II-XI intact bilaterally Cranial nerves: Yes Equal, round and reactive pupils present Cognition (Neuro): normal cognition Gait exam (Neuro): Normal gait present Extrem General: Yes no clubbing, cyanosis or edema Office Procedures Flu Questionnaire Does the patient have a severe egg allergy?: No Does the patient have severe life threatening allergies?: No Does the patient have a fever or illness today?: No Has the patient ever had Guillain-Drifton Syndrome?: No Has the patient ever had any past reaction to a flu shot?: No Office Meds tuberculin PPD 5 tub. unit/0.1 mL intradermal injection solution Performing Provider: Zechariah Azevedo MD [place] [facility] [place] [facility] Administered by: Lydia Simpson RN on 03/06/24 15:05 Dose Route Admin Location Dispensed Lot Number Expiration Date [facility] [employer] 0.1 mL intradermal right forarm 0.1 mL [id number] 10/20/26 92864-335-08 [employer] Immunizations Fluarix Triv [id number] (PF) 45 mcg (15 mcg x 3)/0.5 mL IM syringe Performing Provider: Zechariah Azevedo MD [place] [facility] [place] [facility] Administered by: RADHA Mcdermott on 03/06/24 14:13 Dose Route Admin Location Dispensed Lot Number Expiration Date [facility] [employer] 0.5 mL IM Left Deltoid 0.5 mL [id number] 11/20/24 [id number] [place] VIS Given Date VIS Provided VIS Publication Date 03/06/24 Single Vaccine 20 Eligibility Eligibility Date Funding Source Not [facility] Eligible 03/06/24 Private Coding Level of Care Code Est Pt Prev Care [id number]([id number]) Diagnoses Annual physical exam Z00.00 Pure hypercholesterolemia E78.00 Vitamin D deficiency E55.9 Elevated parathyroid hormone R79.89 Vitamin B12 deficiency E53.8 Morbid obesity with BMI of 50.0-59.9, adult E66.01; Z68.43 Additional Codes WERNER-7 Assessment Billing - WERNER-7 Assessment Tool: WERNER-7 Assessment 03725 ([id number]) Assessment & Plan Assessment & Plan (1) Annual physical exam: Code(s): Z00.00 - Encounter for general adult medical examination without abnormal findings Category: Medical Plan: Check labs She is up-to-date with her annual pap smear and gynecology exam - [facility] [place] [facility] [place] [facility] [place], PPD [place] - patient is instructed to return in 48 to 72 hours to have her PPD read (2) Pure hypercholesterolemia: Code(s): E78.00 - Pure hypercholesterolemia, unspecified Category: Medical Plan: Her total cholesterol was elevated at 218 mg/dl and LDL cholesterol at 153 mg/dl when they were last checked in January 2023 Reinforced low cholesterol diet Will have patient recheck her labs and fasting lipids for follow up (3) Vitamin D deficiency: Code(s): E55.9 - Vitamin D deficiency, unspecified Category: Medical Plan: Her Vitamin D level was low when it was last checked in January 2023 - advised that this may be a potential reason as to why her PTH level is high Will start her on Vitamin D3 2000 units QD (4) Elevated parathyroid hormone: Code(s): R79.89 - Other specified abnormal findings of blood chemistry Category: Medical Plan: Her intact PTH level was high when last checked in January 2023 - this may be secondary to her Vitamin D deficiency and will recheck this when her Vitamin D level is corrected (5) Vitamin B12 deficiency: Code(s): E53.8 - Deficiency of other specified B group vitamins Category: Medical Plan: Patient states that she was just started on Multivitamins by weight management following her sleeve gastrectomy at [facility] last month Will recheck her Vitamin B12 level for follow up (6) Morbid obesity with BMI of 50.0-59.9, adult: Code(s): E66.01 - Morbid (severe) obesity due to excess calories; Z68.43 - Body mass index [BMI] 50.0-59.9, adult Category: Medical Plan: Reinforced diet/exercise as tolerated/lose weight S/P sleeve gastrectomy last month (02/01/2024) at [facility] Follow up with Weight Management as scheduled Plan As requested, flu vaccine given to patient today Follow up in 6 months Orders: Orders Influenza [id number] Immunization Today Z23 - Encounter for immunization AMB PPD Planted Today Z11.1 - Encounter for screening for respiratory tuberculosis Vitamin D 25-OH Total Today E55.9 - Vitamin D deficiency, unspecified, Z00.00 - Encounter for general adult medical examination without abnormal findings Parathyroid Hormone Intact Today E83.52 - Hypercalcemia, Z00.00 - Encounter for general adult medical examination without abnormal findings Hemoglobin A1c Today E11.9 - Type 2 diabetes mellitus without complications, Z00.00 - Encounter for general adult medical examination without abnormal findings Complete Blood Count Auto Diff Today D64.9 - Anemia, unspecified, Z00.00 - Encounter for general adult medical examination without abnormal findings Comprehensive [place]. Panel Fast Today E78.00 - Pure hypercholesterolemia, unspecified, Z00.00 - Encounter for general adult medical examination without abnormal findings Lipid Panel Today E78.00 - Pure hypercholesterolemia, unspecified, Z00.00 - Encounter for general adult medical examination without abnormal findings TSH reflex Free T4 Today E78.00 - Pure hypercholesterolemia, unspecified, Z00.00 - Encounter for general adult medical examination without abnormal findings UA CC w/rflx Micro + Cult Today R30.0 - Dysuria, Z00.00 - Encounter for general adult medical examination without abnormal findings Vitamin B12 and Folate Today E53.8 - Deficiency of other specified B group vitamins, Z00.00 - Encounter for general adult medical examination without abnormal findings Medications: New cholecalciferol (vitamin D3) 50 mcg PO DAILY 90 days 90 caps 3RF E55.9 - Vitamin D deficiency, unspecified
== END 2024-03-06 15:09 | disposition home or self-care (01) ==
PROVIDERS: PCP Internal Medicine; Visit Provider Internal Medicine
DX: Z00.00 Encounter for general adult medical examination without abnormal findings (principal); E78.00 Pure hypercholesterolemia, unspecified; Z68.43 Body mass index [BMI] 50.0-59.9, adult; E66.813 Obesity, class 3; E55.9 Vitamin D deficiency, unspecified; R79.89 Other specified abnormal findings of blood chemistry; E53.8 Deficiency of other specified B group vitamins; Z11.1 Encounter for screening for respiratory tuberculosis

== ENCOUNTER → 2024-03-06 13:48 | Outpatient (BNVA) | payer OTHER, SELFPAY | PROVIDERS: PCP Internal Medicine; Visit Provider Internal Medicine | DX: Z00.00 Encounter for general adult medical examination without abnormal findings (principal); Z23 Encounter for immunization; Z11.1 Encounter for screening for respiratory tuberculosis; E78.00 Pure hypercholesterolemia, unspecified; E55.9 Vitamin D deficiency, unspecified; E53.8 Deficiency of other specified B group vitamins; R79.89 Other specified abnormal findings of blood chemistry; E66.01 Morbid (severe) obesity due to excess calories; Z68.43 Body mass index [BMI] 50.0-59.9, adult; Z71.3 Dietary counseling and surveillance | CPT/HCPCS: 86580; 90471; 90656; 96127; 99395 ==

== ENCOUNTER 2024-03-13 09:13 | Outpatient (AMB) | payer OTHER, SELFPAY ==
--- NOTE | 2024-03-13 09:35 | AM.OFFVISNUR ---
Intake Visit Reasons: PPD Plant Allergies No Known Allergies Allergy (Verified 03/06/24 14:31) Office Meds tuberculin PPD 5 tub. unit/0.1 mL intradermal injection solution Performing Provider: Zechariah Azevedo MD [place] [facility] [place] [facility] Administered by: Maggie Roblero LPN on 03/13/24 09:35 Dose Route Admin Location Dispensed Lot Number Expiration Date [facility] [employer] 0.1 mL intradermal left forearm 0.1 mL [id number] 10/20/26 83950-269-38 [employer] Assessment & Plan Assessment & Plan Orders: Orders AMB PPD Planted Today Z11.1 - Encounter for screening for respiratory tuberculosis Medications: New tuberculin PPD 0.1 mL intradermal ONCE 0.1 mL 0RF Z11.1 - Encounter for screening for respiratory tuberculosis
== END 2024-03-13 09:43 | disposition home or self-care (01) ==
PROVIDERS: PCP Internal Medicine; Visit Provider Internal Medicine
DX: Z11.1 Encounter for screening for respiratory tuberculosis (principal)

== ENCOUNTER → 2024-03-13 09:13 | Outpatient (BNVA) | payer OTHER, SELFPAY | PROVIDERS: PCP Internal Medicine; Visit Provider Internal Medicine | DX: Z11.1 Encounter for screening for respiratory tuberculosis (principal) | CPT/HCPCS: 86580 ==

== ENCOUNTER → 2024-03-15 09:19 | Outpatient (BNVA) | payer OTHER, SELFPAY | PROVIDERS: PCP Internal Medicine; Visit Provider Internal Medicine ==

== ENCOUNTER 2024-08-16 10:06 | Outpatient (AMB) | payer OTHER, SELFPAY ==
[2024-08-16 10:15] VITALS: BP 118/68
--- NOTE | 2024-08-16 10:15 | MHC.OFFVIS ---
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 Geriatric Physical Therapist Required: No Geriatric Physical Therapist Services: Geriatric Physical Therapist Present Information Interpreted: clinical only Property Portfolio Officer: Property Portfolio Officer Present Allergies No Known Allergies Allergy (Verified 08/16/24 10:16) Medication List - Last Reconciled 08/16/24 by Jessica Hurtado CNM cholecalciferol (vitamin D3) 50 mcg PO DAILY cholecalciferol (vitamin D3) 50 mcg PO DAILY 90 days cyanocobalamin (vitamin B-12) 250 mcg (1/2 x 500 mcg) PO DAILY norethindrone (contraceptive) 0.35 mg PO DAILY vitamin A palmitate 6,000 mcg (2 x 3,000 mcg (10,000 unit)) PO DAILY Is last menstrual period known: Yes Last menstrual period: 08/06/24 HPI HPI PROGRAM ELIGIBILITY SPECIALIST 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 She had bariatric surgery in February she was mixing up whether it was at [facility] or [place] but I found in the records that it must have been a [facility] because it is not at [place]. She was 360 at her highest before surgery and our scales are not capable of going over 300 lb at this office but she believes she might be around 315 are 320 now.. She is still on the control pills she is doing well with those. 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 [facility] Medical History Morbid obesity with BMI of 50.0-59.9, adult Vitamin B12 deficiency Elevated parathyroid hormone Vitamin D deficiency Pure hypercholesterolemia Adjustment disorder, unspecified Surgical History (Updated 08/16/24 @ 11:03 by Jessica Hurtado CNM) Status post sleeve gastrectomy History of delivery Family History Maternal Grandmother Hypertension Mother No problems noted. Father No problems noted. Daughter No problems noted. Daughter No problems noted. Son No problems noted. Social History Housing: Apartment Alcohol intake: current Alcohol intake frequency: a few times a month Patient Tobacco Use Status: Never used Tobacco service: No Current occupational status: employed Cognitive needs: No Hearing needs: No Vision needs: No Female Reproductive History Menstrual Age of Menarche: 13 Duration of menses: 3-5 days Date of last menstrual period: 08/06/24 control method: pills Total pregnancies: 3 Full term: 3 Date of last pap smear: 08/13/23 (negative) Physical Exam Vital Signs: Last Vital Signs BP 118/68 08/16/24 10:15 Const General: healthy appearing, comfortable, no acute distress, well developed and alert Nutritional Appearance: obese Orientation/consciousness: patient oriented x3 Limitations: no limitations HEENT Head: Yes normocephalic Neck Neck: Yes normal visual inspection Thyroid: Thyroid normal Chest Chest palpation & inspection: normal inspection of the chest Breast/axilla inspection: normal inspection of the breasts and normal inspection of the axillae Breast/axilla palpation: normal palpation of the breasts and normal palpation of the axillae Resp Effort & Inspection: normal respiratory effort GI Inspection: Yes normal to inspection, No Abdominal wall edema and No distended Palpation (GI): Soft to palpation and nontender Other: External exam within normal limits vagina pink and moist with normal healthy clear whitish discharge cervix appears multiparous pink smooth healthy appearing long thick closed mobile nontender adnexa nontender uterus mobile and nontender but not able to feel contours. Very good tone with Kegel. General: Yes bladder normal to palpation External Female Exam: normal external appearance and normal appearance of the urethra Speculum Exam - Vagina: normal appearance of the vagina, normal palpation and normal vaginal discharge Speculum Exam - Cervix: normal appearance of the cervix, normal palpation and nontender Bimanual exam- vagina & uterus: normal bimanual exam, normal palpation, uterine size normal, bladder normal to palpation, consistency normal, normal palpation, uterine mobility normal, uterine shape normal, No Cervical tenderness present, non-tender and no cervical motion tenderness Bimanual Exam- Adnexa, other: normal adnexae, no masses, normal and No adnexal tenderness Neuro General: patient oriented x3 Results Reviewed Results Reviewed: Name: Brenda Mcdermott Age/Sex: 27/F Attending: Jessica Hurtado CNM : 1995 Submitted by: BryantJessica [facility] Copies to: ElvinMaggie Walker [place] MR #: [id number] Status: DEP REF Col[facility]: 08/12/23 [facility] Received: 08/13/23 Interpretation Satisfactory for evaluation. Negative for intraepithelial lesion or malignancy. Mild inflammation. Clinical Information LMP: 07/16/23 Previous PAP test: Unknown date/findings Material Received ThinPrep-Cervical Copies To Maggie Tinajero [address] [id number] [email or web address] [address] Carrington [address] [place] [id number] Electronically Signed By: June Carranza 08/25/231921 The Pap Test is a screening procedure with the inherent possibility of both false negative and false positive results. Results should be interpreted in the context of historic and current clinical findings. Reliability of the Pap Test is enhanced by performing the test on a regular repetitive basis. Patient: Brenda Mcdermott Age/Sex: 27/F MR#: [id number] Page 1 of 1 Assessment & Plan Assessment & Plan (1) Well woman exam with routine gynecological exam: Code(s): Z01.419 - Encounter for gynecological examination (general) (routine) without abnormal findings Category: Medical (2) Cervical cancer screening: Comment: 08/12/2023 Pap is negative. Code(s): Z12.4 - Encounter for screening for malignant neoplasm of cervix Category: Medical (3) History of irregular menstrual cycles: Code(s): Z87.42 - Personal history of other diseases of the female genital tract Category: Medical (4) control counseling: Code(s): Z30.09 - Encounter for other general counseling and advice on contraception Category: Medical (5) Status post sleeve gastrectomy: Comment: 02/01/2024 - [facility] Weight Management Code(s): Z90.3 - Acquired absence of stomach [part of] Category: Surgical (6) Morbid obesity with BMI of 50.0-59.9, adult: Code(s): E66.01 - Morbid (severe) obesity due to excess calories; Z68.43 - Body mass index [BMI] 50.0-59.9, adult Category: Medical Plan -----Discussed in this visit the following: healthy balanced diet, regular and consistent exercise, getting recommended health screens, doing the best she can for her particular health concerns, kegel exercises, pap smear screening and followup recommendations, mammography screening and SBE, normal changes in cycles in her life stage--- .Discussed in general terms the challenges of obesity and challenges for her health and efforts she is engaging in to manage this including dietary changes water intake attention to sleep inclusion of a regular exercise have it and dealing with the may need stressors of life that can contribute to obesity in general. Encouraged her to continue in all have her best efforts. Congratulated on her efforts and her surgery which have contributed to her weight loss the far and encouraged in her efforts to continue and work towards greater health for herself and her family. 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 Clarified that she must have had the surgery at [facility] because her new recent operative or pre or postop notes in our system. I refilled her control pills and she continue on those for the next year and go straight from 1 pack to the next. She is doing very well with the as well [facility] 1 year. Orders: Orders Bacterial Vaginosis Panel Today N89.8 - Other specified noninflammatory disorders of vagina CT NG by PCR Today N89.8 - Other specified noninflammatory disorders of vagina, Z20.2 - Contact with and (suspected) exposure to infections with a predominantly sexual mode of transmission Medications: Changed From norethindrone (contraceptive) start w beginning of next menses 0.35 mg PO DAILY 84 tabs 3RF To norethindrone (contraceptive) 0.35 mg PO DAILY 84 tabs 4RF Coding Level of Care Code Est Pt Prev Care 18-39y([id number]) Diagnoses Well woman exam with routine gynecological exam Z01.419 Cervical cancer screening Z12.4 History of irregular menstrual cycles Z87.42 control counseling Z30.09 Status post sleeve gastrectomy Z90.3 Morbid obesity with BMI of 50.0-59.9, adult E66.01; Z68.43
--- OUTSIDE RECORDS SUMMARY | 2024-08-16 11:36 | XMS_ITS ---
Author Name [facility] Organization Unknown History of Medication Use Medication Directions Dispensed Refills Start Date End Date Stat aspirin enteric coated 81 MG EC tablet Take 1 tablet (81 mg total) by mouth daily. active ketoconazole (NIZORAL) 2 % shampoo Apply to chest, back, and upper arms 10 minutes prior to showering, then rinse off in shower 07/23/2021 active vitamin with iron and folic acid (VITAFOL-OB+DHA) 65-1 & 250 MG tablet TAKE 1 PACK BY ORAL ROUTE. 12/10/2021 active aspirin 81 mg tablet,delayed release TAKE 1 TABLET BY MOUTH EVERY DAY TAKE 1 TABLET BY MOUTH EVERY DAY completed doxycycline hyclate 100 mg capsule TAKE 1 CAPSULE BY MOUTH TWICE A DAY FOR 7 DAYS TAKE 1 CAPSULE BY MOUTH TWICE A DAY FOR 7 DAYS completed Problems Problem Status Onset Date Problem Type Date of Resoluti on Source Morbid obesity due to excess calories active 2020-07-31 [facility] Hyperlipidemia active 2020-09-23 ProblemAct [facility] Hyperlipidemia active 2020-09-[address] delivery delivered active 2022-07-02 ProblemAct [facility] Morbid obesity active 2020-07-31 ProblemAct [facility] Obesity affecting in first trimester active 2021-12-17 ProblemAct [facility] and not yet delivered in third trimester active 2022-06-29 ProblemAct [facility] Encounters Encounter Type Encounter Reason Primary Diagnosis Location Date [facility] 08/18/2022 [facility] 07/07/2022 Inpatient Encounter for delivery without indication Encounter for delivery without indication [facility] 06/29/2022 [facility] 06/29/2022 [facility] 06[facility]29/2022 [facility] 06/29/2022 [facility] 06[facility]25/2022 [facility] 06/25/2022 [facility] 06/25/2022 [facility] 06[facility]19/2022 [facility] 06/19/2022 [facility] 06[facility]19/2022 Ambulatory Obesity complica ting , third trimester [facility] 06/09/2022 Ambulatory Obesity complica ting , third trimester [facility] 06/09/2022 [facility] 06/03/2022 [facility] 06/03/2022 [facility] 06/03/2022 [facility] 05/27/2022 [facility] 05/27/2022 [facility] 05[facility]27/2022 [facility] 05/19/2022 [facility] 05/15/2022 Ambulatory Obesity complica ting , third trimester [facility] 04/27/2022 [facility] 04/20/2022 [facility] 04/01/2022 Ambulatory Obesity complica ting , second trimester [facility] 03/25/2022 Ambulatory Encounter for immunization [facility] 03/18/2022 [facility] 03/11/2022 Ambulatory Obesity complica ting , second trimester [facility] 02/25/2022 [facility]ulatory [facility] 02/05/2022 [facility] 01/09/2022 Ambulatory Obesity complica ting , first trimester [facility] 01/07/2022 [facility]ulatory [facility] 01/01/2022 Ambulatory Encounter for ge neral adult medical examination with abnormal findings [facility] 12/29/2021 [facility] 12/26/2021 [facility] 12/10/2021 [facility] 12/02/2021 [facility] 12/02/2021 [facility] 11/10/2021 [facility] 10/03/2021 [facility] 10[facility]03/2021 [facility] 09/19/2021 Ambulatory Contact with and (suspected) exposure to covid-19 [facility] 08/27/2021 Ambulatory Chloasma [facility] 07/23/2021 Ambulatory Encounter for immunization [facility] 07/09/2021 Ambulatory Encounter for immunization [facility] 04/24/2021 Care Team Organization Name Specialty Phone Email Start Date End [facility] 09/07/2023 024 [facility] 09/07/2023 024 [facility] 08/22/2022 01/10/2024 [facility] 04/21/2022 [facility] 03/25/2022 [facility] 09/19/2021 04/01/2022 [facility] 07/23/2021 03/25/20
== END 2024-08-16 11:01 | disposition home or self-care (01) ==
LOC: HO.HWSM 10:06
PROVIDERS: PCP Nurse Practitioner Family; Visit Provider Advanced Practice Midwife
DX: Z01.419 Encounter for gynecological examination (general) (routine) without abnormal findings (principal); E66.01 Morbid (severe) obesity due to excess calories; Z68.43 Body mass index [BMI] 50.0-59.9, adult
CPT/HCPCS: 99395; 99459

== ENCOUNTER 2024-08-16 10:06 | Outpatient (REF) | payer OTHER, SELFPAY ==
[2024-08-16 21:39] LABS: Bacterial Vaginosis PCR NEGATIVE (Negative); Candida Group PCR NOT DETECTED (Not Detect); Candida glab krusei PCR NOT DETECTED (Not Detect); Trichomonas vaginalis PCR NOT DETECTED (Not Detect)
[2024-08-16 23:33] LABS: CT PCR NOT DETECTED (Not Detect.); NG PCR NOT DETECTED (Not Detect.)
== END 2024-08-16 10:07 | disposition home or self-care (01) ==
LOC: HO.LAB 10:06
PROVIDERS: PCP Nurse Practitioner Family; Visit Provider Advanced Practice Midwife
DX: Z01.419 Encounter for gynecological examination (general) (routine) without abnormal findings (principal); E66.01 Morbid (severe) obesity due to excess calories; Z68.43 Body mass index [BMI] 50.0-59.9, adult; Z87.42 Personal history of other diseases of the female genital tract; Z90.3 Acquired absence of stomach [part of]
CPT/HCPCS: 81515; 87491; 87591; 99395; 99459

== ENCOUNTER 2024-08-25 09:48 | Outpatient (REF) | payer OTHER, SELFPAY ==
[2024-08-25 10:06] LABS: MANUAL DIFF FLAG NO
[2024-08-25 10:31] LABS: Basophils Percent Auto 0.5 % (0-2); Eosinophils Absolute Auto 0.1 X10*3/uL (0.0-0.4); Eosinophils Percent Auto 1.3 % (0-4); Hematocrit 39.5 % (37.0-47.0); Hemoglobin 13.3 g/dl (12.0-16.0); Imm Gran Abs Auto 0.01 X10*3/uL (0.00-0.03); Imm Gran Pct Auto 0.1 % (0.0-0.4); Lymphocytes Absolute Auto 3.4 X10*3/uL (1.2-4.9); Lymphocytes Percent Auto 38.6 % (20-40); Mean Corpuscular HGB Conc 33.7 g/dl (31.0-35.0); Mean Corpuscular Volume 86.1 fL (80.0-98.0); Mean Platelet Volume 9.1 fL (9.4-12.3); Monocytes Absolute Auto 0.6 X10*3/uL (0.1-1.2); Monocytes Percent Auto 6.5 % (2-11); Neutrophils Absolute Auto 4.6 x10*3/uL (2.0-8.3); Platelet Count 303 X10*3/uL (160-400); Red Blood Count 4.59 X10*6/uL (4.20-5.50); Red Cell Distribution Width 12.7 % (11.0-16.0); White Blood Count 8.7 X10*3/uL (4.8-10.8)
[2024-08-25 10:35] LABS: Appearance Urine Clear; Color Urine Yellow; Glucose Urine UA Negative (Negative); Leukocyte Esterase Urine Negative (Negative); Nitrite Urine Negative (Negative); PH 6.5 (5.0-9.0); Specific Gravity - Urine >= 1.030 (1.005-1.025); Urine Blood Negative (Negative); Urine Ketones Trace mg/dL (Negative); Urine Protein Trace mg/dL (Neg-Trace)
[2024-08-25 11:19] LABS: Estimated Average Glucose 103 mg/dL; Hemoglobin A1C 116.9763 umol/L; Hemoglobin A1c % 5.2 % (<6.0); Total Hemoglobin (HGBA1C) 3515.8775 umol/L
[2024-08-25 12:24] LABS: Folate 5.9 ng/mL (> or = 4.0); Vitamin B12 199 pg/mL (200-900)
[2024-08-25 12:30] LABS: Alanine Aminotransferase 8 U/L (0-31); Alkaline Phosphatase 71 U/L (39-117); Anion Gap 11 (12-20); Aspartate Amino Transferase 18 U/L (5-31); Bilirubin Total 0.4 mg/dL (0.0-1.0); Blood Urea Nitrogen 12 mg/dL (9-16); Calcium 9.2 mg/dL (8.4-10.2); Carbon Dioxide 26 mmol/L (22-29); Chloride 108 mmol/L (96-108); Cholesterol 203 mg/dL (<200); Estimated Glomerular Filt Rate > 60; Glucose Fasting 95 mg/dL (60-99); HDL Cholesterol 48 mg/dL (>40); LDL Cholesterol Calculated 138 mg/dL (<100); Potassium 3.7 mmol/L (3.3-5.1); Sodium 141 mmol/L (135-145); Total Protein 6.8 g/dL (6.5-8.0); Triglycerides 85 mg/dL (<150)
[2024-08-25 12:50] LABS: TSH reflex Free T4 0.58 uIU/mL (0.32-4.0); Vitamin D 25-OH Total 22.8 ng/mL (>30)
[2024-08-25 13:10] LABS: Parathyroid Hormone Intact 83.7 pg/mL (8.7-77.1)
== END 2024-08-25 09:49 | disposition home or self-care (01) ==
LOC: HO.LAB 09:48
PROVIDERS: PCP Internal Medicine; Visit Provider Internal Medicine
DX: Z00.00 Encounter for general adult medical examination without abnormal findings (principal); E83.52 Hypercalcemia; E11.9 Type 2 diabetes mellitus without complications; D64.9 Anemia, unspecified; E78.00 Pure hypercholesterolemia, unspecified; E53.8 Deficiency of other specified B group vitamins; R30.0 Dysuria
CPT/HCPCS: 36415; 80053; 80061; 81003; 82306; 82607; 82746; 83036; 83970; 84443; 85025

== ENCOUNTER 2024-09-06 10:54 | Outpatient (AMB) | payer OTHER, SELFPAY ==
[2024-09-06 10:57] VITALS: BP 104/72; PULSE 79; O2SAT 99; BMI 47.1
--- NOTE | 2024-09-06 10:57 | A.OFFPC_ITS ---
Vital Signs 09/06/24 10:57 Height 5 ft 8 in Weight 310 lb 2 oz BMI 47.1 BP 104/72 Blood Pressure Location Lt brachial Position Sitting Pulse 79 Pulse Source Pulse Oximeter Pulse Oximetry (%) 99 Oxygen Delivery Method Room Air Intake Visit Reasons: vitamin D deficiency, elevated PTH, hyperlipidemia Postal Carrier Required: No Accompanied by: Self / Same As Patient Allergies No Known Allergies Allergy (Verified 09/06/24 11:33) Medication List - Last Reconciled 09/06/24 by Zechariah Azevedo MD cholecalciferol (vitamin D3) 50 mcg PO DAILY cyanocobalamin (vitamin B-12) 250 mcg (1/2 x 500 mcg) PO DAILY norethindrone (contraceptive) 0.35 mg PO DAILY vitamin A palmitate 6,000 mcg (2 x 3,000 mcg (10,000 unit)) PO DAILY Tobacco use date assessed: 09/06/24 Dental Screening Dental Screen Date: 09/06/24 Did you have a dental visit in the last 12 months?: Yes Did you have a dental problem in the last 6 months where you did not have access to dental care?: No Was dental information given to patient?: Patient has dentist HPI vitamin D deficiency, elevated PTH, hyperlipidemia HPI Details Patient comes in today for her follow up visit States that she feels okay She denies any headaches or dizziness Denies any chest pains, no SOB No nausea/vomiting, no abdominal pain No change in bowel habits noted She had her follow up labs done a couple of weeks ago - to discuss her results [facility] Medical History (Updated 09/06/24 @ 12:10 by Zechariah Azevedo MD) Morbid obesity with BMI of 45.0-49.9, adult Morbid obesity with BMI of 50.0-59.9, adult Vitamin B12 deficiency Elevated parathyroid hormone Vitamin D deficiency Pure hypercholesterolemia Adjustment disorder, unspecified Surgical History Status post sleeve gastrectomy History of delivery Family History Maternal Grandmother Hypertension Mother No problems noted. Father No problems noted. Daughter No problems noted. Daughter No problems noted. Son No problems noted. Social History Housing: Apartment Alcohol intake: current Alcohol intake frequency: a few times a month Patient Tobacco Use Status: Never used Tobacco service: No Current occupational status: employed Cognitive needs: No Hearing needs: No Vision needs: No Female Reproductive History Menstrual Age of Menarche: 13 Questionnaire PHQ-9 Over the last 2 weeks, how often have you been bothered by any of the following problems? 1. Little interest or pleasure in doing things: not at all 2. Feeling down, depressed, or hopeless: not at all 3. Trouble falling or staying asleep, or sleeping too much: not at all 4. Feeling tired or having little energy: not at all 5. Poor appetite or overeating: not at all 6. Feeling bad about yourself - or that you are a failure or have let yourself or your family down: not at all 7. Trouble concentrating on things, such as reading the newspaper or watching television: not at all 8. Moving or speaking so slowly that other people could have noticed. Or the opposite - being so fidgety or restless that you have been moving around a lot more than usual: not at all 9. Thoughts that you would be better off or of hurting yourself in some way: not at all Total score: 0 Depression Screening Interpretation: Negative Depression Screening Done: Yes 90138 - PHQ-9 Billing: Yes Source: Developed by Drs. Koby Becerril, Melisa Infante, Hardeep Sol and colleagues, with an educational wilder from [employer]. Thrive Questionnaire Date Thrive assessed: 09/06/24 I am a: Patient What is your living situation today?: I have a steady place to live Within the past 12 months, did the food you bought not last and you didn't have the money to get more?: Never true Within the past 12 months, did you worry whether your food would run out before you got money to buy more?: Never true Do you have trouble paying for medicines?: No Do you have trouble getting transportation to medical appointments?: No Do you have trouble paying your heating and electricity bill?: No Do you have trouble taking care of your child, family member or friend?: No Do you have trouble with day-to-day activities such as bathing, preparing meals, shopping, managing finances, etc.?: No Are you currently unemployed and looking for a job?: No Are you interested in more education?: Yes Please select the resources that you would like help with: None Currently or been in a relationship where the following occur: No concerns reported THRIVE Score: 0 AUDIT C Alcohol Use Questionnaire (AUDIT-C) 1. How often do you have a drink containing alcohol?: Never 3. How often do you have six or more drinks on one occasion?: Never Total Score: 0 Score Reviewed/Action Taken: Yes WERNER-7 AMB Questionnaire WERNER-7 Date WERNER - 7 assessed: 09/06/24 Feeling nervous, anxious, or on edge: 0 = Not at all Not being able to stop or control worryin = Not at all Worrying too much about different things: 0 = Not at all Trouble relaxin = Not at all Being so restless that it is hard to sit still: 0 = Not at all Becoming easily annoyed or irritable: 0 = Not at all Feeling afraid as if something awful might happen: 0 = Not at all Total WERNER-7 score (0-4 normal; 5-9 mild; 10-14 moderate; 15-21 severe): 0 Source: Developed by Drs. Koby Becerril, Melisa Infante, Hardeep Sol and colleagues, with an educational wilder from [employer]. WERNER-7 Assessment Billing WERNER-7 Assessment Tool: WERNER-7 Assessment 66342 Review of Systems Const Denies chills, Denies fatigue, Denies fever(s) and Denies headache(s) ENT Denies dysphagia, Denies dizziness, Denies otalgia, Denies headache(s), Denies neck pain, Denies odynophagia and Denies sore throat Card Denies chest pain, Denies irregular heart rhythm, Denies palpitations and Denies dyspnea Resp Denies chest congestion, Denies cough and Denies dyspnea GI Denies abdominal pain, Denies constipation, Denies dysphagia, Denies heartburn, Denies diarrhea, Denies nausea, Denies odynophagia and Denies vomiting Denies urinary frequency, Denies dysuria and Denies urinary urgency Musc Denies back pain, Denies arthralgias and Denies neck pain Skin/Breast Denies rash Neuro Denies dizziness, Denies headache(s) and Denies paresthesias Psych Denies anxiety and Denies depression Endo Denies fatigue and Denies palpitations Amandeep/Lymph Denies easy bruising Physical exam (Primary Care) Vital Signs: Last Vital Signs Pulse 79 09/06/24 10:57 BP 104/72 09/06/24 10:57 Pulse Ox 99 09/06/24 10:57 Oxygen Delivery Method Room Air 09/06/24 10:57 BMI result Body Mass Index 47.1 Tobacco/Smoking Status: Tobacco use Status Tobacco use date assessed 09/06/24 09/06/24 11:03 Patient Tobacco Use Status Never used Tobacco 09/06/24 11:03 PHQ-9: PHQ-9 Score PHQ-9: Total score 0 09/06/24 11:03 Depression Screening Interpretation: Negative Thrive Assessment: Date of Thrive Assessment Date Thrive assessed 09/06/24 09/06/24 11:03 Currently or been in a relationship where the following occur: No concerns reported Const General: no acute distress and alert HENMT Ears: TM's normal bilaterally and EAC's normal Throat: Yes posterior oropharynx normal and Yes tonsils normal (no TP congestion) Neck Neck: Yes no lymphadenopathy and Yes supple Thyroid: Thyroid normal Resp Auscultation: clear to auscultation bilaterally, no rales and no wheezes Cardio Rate: regular rate Rhythm: regular rhythm Heart sounds: no murmurs GI Palpation (GI): Soft to palpation and nontender Auscultation: normal bowel sounds General: Yes no CVA tenderness Back/Spine/Pelvis Back: no CVA tenderness Thoracic/Lumbar Spine: No lumbar spinal tenderness Skin Rashes: no rashes Extrem General: Yes no clubbing, cyanosis or edema Results Reviewed Results Reviewed: Laboratory Tests 08/25/24 08/25/24 10:03 10:04 WBC 8.7 Hgb 13.3 Hct 39.5 Plt Count 303 Sodium 141 Potassium 3.7 Creatinine 0.77 Estimated GFR > 60 Fasting Glucose 95 Hemoglobin A1c % 5.2 Calcium 9.2 AST 18 ALT 8 Triglycerides 85 Cholesterol 203 H LDL Cholesterol, Calc 138 H HDL Cholesterol 48 Vitamin B12 199 L 25-OH Vitamin D Total 22.8 L TSH 0.58 PTH Intact 83.7 H Urine pH 6.5 Ur Specific [place] >= 1.030 H Urine Protein Trace Urine Glucose (UA) Negative Urine Blood Negative Urine Nitrite Negative Ur Leukocyte Esterase Negative Coding Level of Care Code Est Pt Level 4 (55479) Diagnoses Pure hypercholesterolemia E78.00 Vitamin D deficiency E55.9 Elevated parathyroid hormone R79.89 Vitamin B12 deficiency E53.8 Morbid obesity with BMI of 50.0-59.9, adult E66.01; Z68.43 Morbid obesity with BMI of 45.0-49.9, adult E66.01; Z68.42 Additional Codes WERNER-7 Assessment Billing - WERNER-7 Assessment Tool: WERNER-7 Assessment 95482 ([id number]) PHQ-9 - 63272 - PHQ-9 Billing: Yes ([id number]) Assessment & Plan Assessment & Plan (1) Pure hypercholesterolemia: Code(s): E78.00 - Pure hypercholesterolemia, unspecified Category: Medical Plan: Results of her labs done a couple of weeks ago reviewed and discussed with patient - her cholesterol levels have improved slightly from previous Reinforced low cholesterol diet Will have patient recheck her labs and fasting lipids in 6 months for follow up (2) Vitamin D deficiency: Code(s): E55.9 - Vitamin D deficiency, unspecified Category: Medical Plan: Improving Continue Vitamin D3 2000 units QD (3) Elevated parathyroid hormone: Code(s): R79.89 - Other specified abnormal findings of blood chemistry Category: Medical Plan: Her intact PTH level was high back in January 2023 and has improved slightly on her recent labs Discussed with patient again that this may be due to her low Vitamin D level (secondary hyperparathyroidism) and may correct itself once her Vitamin D is repleted Will recheck this along with her Vitamin D level in 6 months for follow up (4) Vitamin B12 deficiency: Code(s): E53.8 - Deficiency of other specified B group vitamins Category: Medical Plan: Patient is advised that her Vitamin B12 level is low when recently checked and this is not unusual in post-gastrectomy patients She is advised that the Multivitamins that she was started on by weight management (following her sleeve gastrectomy at [facility] a few months ago) may not be enough so will start her as well on Vitamin B12 500 mcg QD - Rx sent Will recheck her Vitamin B12 level in 6 months for follow up (5) Morbid obesity with BMI of 50.0-59.9, adult: Code(s): E66.01 - Morbid (severe) obesity due to excess calories; Z68.43 - Body mass index [BMI] 50.0-59.9, adult Category: Medical Plan: Reinforced diet/exercise as tolerated/lose weight S/P sleeve gastrectomy last month (02/01/2024) at [facility] Follow up with Weight Management as scheduled (6) Morbid obesity with BMI of 45.0-49.9, adult: Code(s): E66.01 - Morbid (severe) obesity due to excess calories; Z68.42 - Body mass index [BMI] 45.0-49.9, adult Category: Medical Plan: Reinforced diet/exercise as tolerated/lose weight S/P sleeve gastrectomy at [facility] on 02/01/2024 Patient has already lost over 30 pounds since her last visit Follow up with Weight Management as scheduled Plan To return as scheduled in February 2025 for her next annual physical examination Orders: Orders Complete Blood Count Auto Diff 6 Months D64.9 - Anemia, unspecified, Z00.00 - Encounter for general adult medical examination without abnormal findings Comprehensive [place]. Panel Fast 6 Months E78.00 - Pure hypercholesterolemia, unspecified, Z00.00 - Encounter for general adult medical examination without abnormal findings Lipid Panel 6 Months E78.00 - Pure hypercholesterolemia, unspecified, Z00.00 - Encounter for general adult medical examination without abnormal findings TSH reflex Free T4 6 Months E78.00 - Pure hypercholesterolemia, unspecified, Z00.00 - Encounter for general adult medical examination without abnormal findings UA CC w/rflx Micro + Cult 6 Months R30.0 - Dysuria, Z00.00 - Encounter for general adult medical examination without abnormal findings Vitamin B12 and Folate 6 Months E53.8 - Deficiency of other specified B group vitamins, Z00.00 - Encounter for general adult medical examination without abnormal findings Vitamin D 25-OH Total 6 Months E55.9 - Vitamin D deficiency, unspecified, Z00.00 - Encounter for general adult medical examination without abnormal findings Parathyroid Hormone Intact 6 Months E83.52 - Hypercalcemia, Z00.00 - Encounter for general adult medical examination without abnormal findings Medications: Changed From cyanocobalamin (vitamin B-12) 250 mcg (1/2 x 500 mcg) PO DAILY 30 tabs 5RF To cyanocobalamin (vitamin B-12) 500 mcg PO DAILY 90 days 90 tabs 3RF
== END 2024-09-06 11:49 | disposition home or self-care (01) ==
LOC: HO.HMCH 10:55
PROVIDERS: PCP Internal Medicine; Visit Provider Internal Medicine
DX: E78.00 Pure hypercholesterolemia, unspecified (principal); E66.01 Morbid (severe) obesity due to excess calories; Z68.43 Body mass index [BMI] 50.0-59.9, adult; Z68.42 Body mass index [BMI] 45.0-49.9, adult; E55.9 Vitamin D deficiency, unspecified; R79.89 Other specified abnormal findings of blood chemistry; E53.8 Deficiency of other specified B group vitamins

== ENCOUNTER → 2024-09-06 10:54 | Outpatient (BNVA) | payer OTHER, SELFPAY | PROVIDERS: PCP Internal Medicine; Visit Provider Internal Medicine | DX: E78.00 Pure hypercholesterolemia, unspecified (principal); E55.9 Vitamin D deficiency, unspecified; R79.89 Other specified abnormal findings of blood chemistry; E53.8 Deficiency of other specified B group vitamins; E66.01 Morbid (severe) obesity due to excess calories; Z68.42 Body mass index [BMI] 45.0-49.9, adult; Z98.84 Bariatric surgery status | CPT/HCPCS: 96127; 99212 ==